=== PATIENT | female | born 1940 | race Asian ===

== ENCOUNTER 2024-11-30 09:18 | Emergency (ER) | payer MEDICARE, MEDICAID ==
[~2024-11-30] VITALS: Ht 152.4 cm; Wt 45.0 kg
[2024-11-30 09:19] VITALS: O2SAT 95
[2024-11-30 13:25] VITALS: BP 100/68; PULSE 72; RESP 16; TEMP 36.83628; O2SAT 95
== END 2024-11-30 13:26 | disposition home or self-care (01) ==
LOC: ER 09:18
DX: M25.561 Pain in right knee (principal); R90.82 White matter disease, unspecified; F03.90 Unspecified dementia, unspecified severity, without behavioral disturbance, psychotic disturbance, mood disturbance, and anxiety; M47.812 Spondylosis without myelopathy or radiculopathy, cervical region; Z99.3 Dependence on wheelchair; W06.XXXA Fall from bed, initial encounter; Y93.89 Activity, other specified; Y92.89 Other specified places as the place of occurrence of the external cause; Y99.8 Other external cause status
CPT/HCPCS: 70486; 71045; 72192; 73700; 93970; 99284